=== PATIENT | female | born 1950 | race Caucasian/White ===

== ENCOUNTER 2018-08-22 17:16 | Inpatient (IN) | payer OTHER ==
[~2018-08-22] VITALS: Ht 157.5 cm; Wt 88.0 kg
[~2018-08-22 17:16] MED LIST: ALBUTEROL1.25 MG/3 UPD; ALEVE220 MG PO; GABAPENTIN100 MG PO; GLUCOPHAGE500 MG PO; GLUCOTROL 5 MG T5 MG PO; HYDROCODONE-APA1 TAB OR; HYDROCODONE-APA1 TAB PO; IPRAT-ALBUT 0.5-3 ML UPD; KEFLEX500 MG PO; KLONOPIN1 MG PO; MYCOSTATIN CREA15 GM TP; PAXIL10 MG PO; PERCOCET 10/3251 TA1 PO; PHENERGAN25 M1 PO; PROTONIX40 MG PO; VALIUM5 MG PO
[2018-08-22 18:06] LABS: BASOPHILS 0.2 % (0-2); EOSINOPHILS 0.3 % (0-7); HEMATOCRIT 36.5 % (36.0-48.0); HEMOGLOBIN 10.9 g/dL (12-16); IMMATURE GRANULOCYTES 0.3 % (0-5); LYMPHOCYTES 16.7 % (15-50); MCH 22.2 pg (26.0-34.0); MCHC 29.9 g/dL (31.0-37.0); MCV 74.5 fL (80.0-100.0); MEAN PLATELET VOLUME 10.6 fL (7.4-10.4); MONOCYTES 7.8 % (2-11); NEUTROPHILS 74.7 % (40-80); PLATELET COUNT 252 10x3/uL (130-400); RDW 18.2 % (11.5-14.5); WBC 11.9 10x3/uL (4.8-10.8)
[2018-08-22 18:15] LABS: INR 1.1 (0.85-1.17); PROTIME 13.7 SECONDS (11.6-15.0)
[2018-08-22 18:16] LABS: APTT 34.9 SECONDS (22.8-39.4)
[2018-08-22 18:27] LABS: ALBUMIN 3.3 g/dL (3.4-5.0); ALKALINE PHOSPHATASE 71 U/L (46-116); ALT (SGPT) 16 U/L (10-68); CALC OSMOLALITY 265 mosm/kg (275-300); CALCIUM 8.8 mg/dL (8.5-10.1); CARBON DIOXIDE 27.8 mmol/L (21.0-32.0); CHLORIDE - SERUM 96 mmol/L (98-107); CREATININE - SERUM 0.7 mg/dL (0.6-1.3); GLUCOSE 142 mg/dL (74-106); POTASSIUM - SERUM 3.8 mmol/L (3.5-5.1); PROTEIN - SERUM 8.1 g/dL (6.4-8.2); SODIUM 133 mmol/L (136-145); UREA NITROGEN 8 mg/dL (7-18); eGFR NON AFRICAN AMERICAN 88 mL/min (90-120)
[2018-08-22 18:39] LABS: CREATINE KINASE 63 UL (21-215); MAGNESIUM - SERUM 1.7 mg/dL (1.8-2.4); THYROID STIMULATING HORMONE 0.44 uIU/mL (0.36-3.74)
[2018-08-22 18:40] LABS: TROPONIN-I < 0.017 ng/mL (0.000-0.060)
[2018-08-22 19:05] LABS: APPEARANCE CLOUDY (CLEAR); BILIRUBIN NEGATIVE (NEGATIVE); COLOR YELLOW (YELLOW); GLUCOSE NEGATIVE (NEGATIVE); KETONE NEGATIVE (NEGATIVE); NITRITE POSITIVE (NEGATIVE); PROTEIN NEGATIVE (NEGATIVE); UROBILINOGEN NORMAL (NORMAL)
[2018-08-22 19:07] LABS: BACTERIA MANY /hpf (NONE SEEN); MUCUS <1+ /lpf (NONE SEEN); RED CELLS - URINE 0-5 /hpf (0-5); WHITE CELLS - URINE >50 /hpf (0-5)
[2018-08-22 22:24] VITALS: BP 110/34
[2018-08-23 01:58] VITALS: BP 127/53
[2018-08-23 06:03] VITALS: BP 121/49
[2018-08-23 08:32] LABS: CALC OSMOLALITY 278 mosm/kg (275-300); CALCIUM 8.6 mg/dL (8.5-10.1); CARBON DIOXIDE 25.9 mmol/L (21.0-32.0); CHLORIDE - SERUM 102 mmol/L (98-107); CREATININE - SERUM 0.7 mg/dL (0.6-1.3); GLUCOSE 156 mg/dL (74-106); MAGNESIUM - SERUM 1.8 mg/dL (1.8-2.4); PHOSPHOROUS 3.5 mg/dL (2.5-4.9); POTASSIUM - SERUM 3.6 mmol/L (3.5-5.1); SODIUM 139 mmol/L (136-145); UREA NITROGEN 7 mg/dL (7-18); eGFR NON AFRICAN AMERICAN 88 mL/min (90-120)
[2018-08-23 08:42] LABS: BASOPHILS 0.3 % (0-2); EOSINOPHILS 0.3 % (0-7); HEMATOCRIT 34.2 % (36.0-48.0); HEMOGLOBIN 10.1 g/dL (12-16); IMMATURE GRANULOCYTES 0.1 % (0-5); LYMPHOCYTES 28.6 % (15-50); MCHC 29.5 g/dL (31.0-37.0); MCV 74.3 fL (80.0-100.0); MONOCYTES 11.3 % (2-11); NEUTROPHILS 59.4 % (40-80); PLATELET COUNT 232 10x3/uL (130-400); RDW 18.3 % (11.5-14.5)
[2018-08-23 08:43] LABS: WBC 7.8 10x3/uL (4.8-10.8)
--- NOTE | 2018-08-23 08:47 | NUR ---
0830-REPORT RECEIVED FROM CONTRERAS IN THE ED. 0845-TO ROOM VIA WHEELCHAIR. WILL ADMIT. DENIES NEEDS AT THIS TIME.
--- NOTE | 2018-08-23 08:52 | NUR ---
CALLED [facility] [place] FOR A IV POLE AND SET UP.
[2018-08-23 09:46] VITALS: BP 98/66; BMI 35.5
[2018-08-23] MEDS ORDERED: KLONOPIN1 MG PO (10:29)
--- NOTE | 2018-08-23 10:29 | NUR ---
PER PATIENT'S PERMISSION I CALLED [facility] TO VERIFY HER MEDICATION. I TALKED TO TECH. GERMAIN
[2018-08-23] MEDS ORDERED: PAXIL10 MG PO (10:38)
--- NOTE | 2018-08-23 10:38 | NUR ---
[facility] DOES NOT FILL THE PAXIL. PER PATIENT THIS WAS FILLED AT [facility] [address]. PER PATIENT PERMISSION I CALLED AND TALKED TO CHRISTIN RODRIGUEZ TO VERIFY THIS.
--- NOTE | 2018-08-23 10:58 | NUR ---
PLACED ON HEART MONITOR SHOWING SR, HR 81.
[2018-08-23 11:54] VITALS: BP 98/66
--- NOTE | 2018-08-23 12:42 | NUR ---
I CALLED OVER TO DR ENGLISH DARDEN TO SPEAK TO THE NURSE TO SEE ABOUT CONTINUATION OF HOME MEDICATIONS. I WAS SENT TO THE VOICEMAIL. I CALLED AGAIN AND WAS SENT TO THE VOICEMAIL. I HAD TO LEAVE A VOICEMAIL.
--- NOTE | 2018-08-23 13:25 | NUR ---
CALLED AGAIN TO DR BORJAS OFFICE AND WAS TOLD THEY ARE STILL AT [facility] AND WONT BE BACK UNTIL 2 PM.
--- NOTE | 2018-08-23 14:11 | NUR ---
JENNI (NURSE FROM DR BORJAS OFFICE) TO CALL ME AND TELL ME THAT DR BORJAS IS GOING TO REVIEW HER MEDICATIONS.
[2018-08-23 15:15] VITALS: Ht 157.5 cm; Wt 88.0 kg
--- NOTE | 2018-08-23 15:59 | NUR ---
PATIENT DOES NOT WANT TO WEAR SCD'S SHE IS UP AND DOWN TO THE BATHROOM AND IN CHAIR.
[2018-08-23 16:43] VITALS: BP 106/61
--- NOTE | 2018-08-23 17:11 | NUR ---
IV FLUIDS OF NS STARTED INFUSING TO RIGHT FA/AC AREA ORDERED AT 100 CC/HR. WILL PLACE [facility] CATH PAST SUPPER TRAY. PATIENT HAS AGREED TO WEAR SCD'S ORDERED WHEN [facility] CATH IS PLACED.
--- NOTE | 2018-08-23 17:25 | NUR ---
DR BORJAS HERE AND TELLS ME THAT WE DO NOT NEED THE [facility] CATH PLACEMENT AT THIS TIME.
--- NOTE | 2018-08-23 17:41 | NUR ---
PATIENT AND SPOUSE ARE INFORMED THAT PATIENT NEEDS TO BE NPO PAST MIDNIGHT FOR UPPER GI SERIES.
--- NOTE | 2018-08-23 19:30 | NUR ---
RESUMING PATIENT CARE. PATIENT IS ALERT AND ORIENTED, SITTING ON SIDE OF BED. RESPIRATIONS ARE EVEN AND UNLABORED. NO S/S OF DISTRESS. NO C/O PAIN. CALL LIGHT WITHIN REACH. WILL CPOC.
[2018-08-23 20:00] VITALS: BP 101/38
[2018-08-24] VITALS: BP 101/35
[2018-08-24 04:00] VITALS: BP 121/55
[2018-08-24 06:05] LABS: BASOPHILS 0.3 % (0-2); EOSINOPHILS 0.3 % (0-7); HEMATOCRIT 33.6 % (36.0-48.0); HEMOGLOBIN 9.8 g/dL (12-16); IMMATURE GRANULOCYTES 0.2 % (0-5); LYMPHOCYTES 37.1 % (15-50); MCH 21.9 pg (26.0-34.0); MCHC 29.2 g/dL (31.0-37.0); MCV 75.2 fL (80.0-100.0); MEAN PLATELET VOLUME 10.8 fL (7.4-10.4); MONOCYTES 14.5 % (2-11); NEUTROPHILS 47.6 % (40-80); PLATELET COUNT 215 10x3/uL (130-400); RBC 4.47 10x6/uL (4.00-5.40); RDW 18.1 % (11.5-14.5); WBC 6.6 10x3/uL (4.8-10.8)
[2018-08-24 06:35] LABS: CALC OSMOLALITY 275 mosm/kg (275-300); CARBON DIOXIDE 25.8 mmol/L (21.0-32.0); CHLORIDE - SERUM 101 mmol/L (98-107); CREATININE - SERUM 0.7 mg/dL (0.6-1.3); GLUCOSE 158 mg/dL (74-106); POTASSIUM - SERUM 3.3 mmol/L (3.5-5.1); SODIUM 138 mmol/L (136-145); UREA NITROGEN 5 mg/dL (7-18); eGFR NON AFRICAN AMERICAN 88 mL/min (90-120)
[2018-08-24 07:00] VITALS: BP 118/60
--- NOTE | 2018-08-24 07:15 | NUR ---
PT DOES NOT HAVE IV RUNNING AT THIS TIME. PT LAYING IN BED EYES CLOSED. BREATHING EVEN AND UNLABORED, BED IN LOWEST POSITION AND CALL LIGHT WITHIN REACH. PT'S AT BEDSIDE. REPORT RECIEVED AND MORNING ROUNDING COMPLETE.
--- NOTE | 2018-08-24 07:57 | HP ---
PATIENT: MIKE PETERSON MEDICAL RECORD: [id number] ACCOUNT: [id number] LOCATION:[address] : 50 ADMISSION DATE: 08/22/18 PCP: IFEANYI BORJAS MD HISTORY AND PHYSICAL EXAMINATION REASON FOR ADMISSION: Altered mental status. HISTORY OF PRESENT ILLNESS: The patient is a 68-year-old female with history of COPD, whose noted her late yesterday afternoon to be somewhat confused when he returned home. She was having trouble articulating i.e., having some word salad. She had trouble naming the name of her cat and what city she lived in. She simply cannot answer questions well and her thought that she had increase in leg pain as well. She denied fever, presented to the Emergency Room with these complaints. Initially, she was thought to have had a stroke and had a CT scan of her head, it did not show any acute cerebral injury. She was noted, however, to have significant pyuria and bacteriuria. She was given IV antibiotics and fluids now somewhat improved. She denies headache and was more oriented at this time. She has been waiting overnight for a bed. PAST MEDICAL HISTORY: Type 2 diabetes mellitus, history of ventral hernia repair, chronic anxiety and depression with panic disorder, diabetic peripheral neuropathy, obesity, chronic back pain, osteoarthritis, history of Stafford's palsy partially resolved, sleep apnea, restless leg syndrome, sciatica, and anemia of chronic renal disease. PAST SURGICAL HISTORY: Laparoscopic cholecystectomy and ventral hernia repair, appendectomy, cervical fusion, and arthroscopy on knee. ALLERGIES: MORPHINE. FAMILY HISTORY: Mother is , at 39, accidental . Father's health unknown. MEDICATIONS: NovoLog sliding scale as directed, metformin ER 500 mg twice a day, Protonix 40 mg a day, Lyrica 100 mg p.o. t.i.d., Hydrocodone 10/325 one t.i.d. p.r.n. low back pain, DuoNeb updrafts 4 times daily, ProAir rescue inhaler as needed, Klonopin 1 mg one-half to one p.o. b.i.d. for anxiety, Breo Ellipta 200 mcg 1 puff daily, paroxetine 20 mg daily. REVIEW OF SYSTEMS: CONSTITUTIONAL: Chronically fatigued and depressed. No recent weight change. HEENT: No recent visual change, sinus congestion, or sore throat. RESPIRATORY: No SOB or cough. CARDIAC: No recent chest pains, orthopnea, palpitations or claudication. GASTROINTESTINAL: No nausea or vomiting. GENITOURINARY: She has chronic urinary urgency. She has had some malodorous urine recently, but no dysuria or hematuria. MUSCULOSKELETAL: Chronic lumbago and sciatica. INTEGUMENTARY: No rash or itching. PSYCHIATRIC: Admits to chronically depressed mood due to her son's suicide years ago. She has anxiety as well, but it is well controlled with Klonopin. PHYSICAL EXAMINATION: VITAL SIGNS: Temperature is 100.2, pulse 106, respirations 19, blood pressure HISTORY AND PHYSICAL [id number] MIKE PETERSON is 130/69 with a sat 93% on room air. HEENT: Normocephalic. Eyes are clear, nonicteric. Oropharynx has dry mucous membranes. NECK: Supple. CHEST: Faint expiratory wheeze on forced expiration. No rales, but she is not tachypneic. HEART: Tachycardic without gallop. ABDOMEN: Obese, soft, nontender. No organomegaly. No CVA tenderness noted. EXTREMITIES: No CCE. NEUROLOGICAL: She is oriented to person and place, but not time. She now can remember the name of her cat, but could not previously. She denies any weakness in her legs or arms, trouble swallowing. LABORATORY DATA: Shows white count of 11,900 with H&H of 10 and 34.2, reflecting her chronic anemia. Platelet count 232,000. Electrolytes are normal. Creatinine is 0.7, glucose is 156 nonfasting. Urinalysis is nitrite positive, greater than 50 white cells per high power field, many bacteria. INR is 1.1, magnesium is low at 1.7. Cardiac enzymes are negative. Urine culture showing gram-negative hitesh currently. CT of the head without contrast showing no mass affect or hemorrhage, otherwise normal for age. Chest x-ray shows no acute findings. ASSESSMENT: 1. Urinary tract infection, most likely cause of altered mental status. 2. Chronic obstructive pulmonary disease. 3. Hypertension. 4. Hyperlipidemia. 5. Obesity. 6. Chronic pain syndrome, lumbar disc disease. 7. Anxiety, depression, and restless leg syndrome. PLAN: The patient will be admitted. She has been cultured appropriately placed on IV Levaquin and already more alert. Give IV fluids, hold any type of antihypertensive meds currently until well hydrated. Further workup pending clinical course. TRANSINT:[id number] Voice Confirmation ID: [id number] DOCUMENT ID: [id number] IFEANYI BORJAS MD at 0757 CC: [id number] DICTATION DATE: 08/23/18 1558 CLOTH PATTERN MAKER: 08/23/181955 ADM IN [place] [id number] [place] [id number]
--- NOTE | 2018-08-24 08:13 | NUR ---
PT LEAVING FLOOR VIA WHEELCHAIR WITH IR FOR UPPER GI.
[2018-08-24 08:24] LABS: % SATURATION 6 % (15-55); IRON 23 ug/dl (35-150); TOTAL IRON BIND CAPACITY 352 ug/dl (260-445); UNSAT IRON BIND CAPACITY 329 ug/dl (150-375)
[2018-08-24 08:41] LABS: FERRITIN 28 ng/mL (3-244); LDH 360 U/L (81-234)
--- NOTE | 2018-08-24 09:16 | NUR ---
PT BACK IN ROOM REQUESTING BREAKFAST TRAY. ORDERED TRAY. CALL LIGHT WITHIN REACH.
--- NOTE | 2018-08-24 10:18 | NUR ---
IV PATENT. AT BS. CALL LIGHT IN REACH. WILL MONITOR NEEDS.
[2018-08-24 11:00] VITALS: BP 121/54
[2018-08-24 15:00] VITALS: BP 138/56
--- NOTE | 2018-08-24 19:45 | NUR ---
RN NOTE - INITIAL ROUNDS COMPLETED. PT SPOUSE AT BEDSIDE. NO COMPLAINTS AT THIS TIME. NO S/S OF DISTRESS, RR EVEN AND UL. WCTM AND FOLLOW POC. SR UP X2, CL IN REACH. BED IN LOWEST POSITION.
[2018-08-24 20:25] VITALS: BP 124/63
--- NOTE | 2018-08-24 23:54 | NUR ---
PT IS RESTING QUIETLY IN BED WITH EYES CLOSED. RESPS ARE EVEN AND UNLABORED. NO ACUTE DISTRESS NOTED.
[2018-08-25 00:30] VITALS: BP 115/53
--- NOTE | 2018-08-25 04:29 | NUR ---
PT RESTING IN BED WITH EYES CLOSED.
[2018-08-25 04:45] VITALS: BP 124/54
--- NOTE | 2018-08-25 07:15 | NUR ---
REPORT RECIEVED AND MORNING ROUNDING COMPLETE. PT LAYING IN BED O&A X4. PT WANTING TO GO HOME TODAY. PT IS AT BEDSIDE AND PT HAS NO NEEDS AT THIS TIME, CALL LIGHT WITHIN REACH. BED IN LOWEST POSITION. INFORMED PT THAT WE NEEDED A STOOL SAMPLE WHENEVER SHE GOES, LET MYSELF OR HER INTERNATIONAL LOGISTICS MANAGER KNOW. PT STATES SHE UNDERSTANDS.
[2018-08-25 08:25] VITALS: BP 117/75
--- NOTE | 2018-08-25 09:59 | NUR ---
UP AMBULATING HALLWAY. GAIT STEADY.
[2018-08-25] MEDS ORDERED: MACRODANTIN100 MG PO (10:11)
--- NOTE | 2018-08-25 12:33 | NUR ---
PT IS DISCHARGED. REMOVED PTS PIV FROM RIGHT AC. NO BLEEDING NOTED. REVIEWED PT'S DISCHARGE PAPERWORK PT STATED FULL UNDERSTANDING AND SIGNED THE PAPERWORK. PT WAS TOOK OUT TO MEET HER VIA WHEELCHAIR.
[2018-08-26 11:14] LABS: FOLATE (FOLIC ACID) - SERUM 10.3 ng/mL (>3.0)
--- NOTE | 2018-08-26 12:46 | MORECARE ---
CASE MANAGEMENT DISCHARGE SUMMARY PATIENT: MIKE PETERSON UNIT: [id number] ADM DATE: 08/22/18 AGE: 68 : 50 SEX: F ROOM/BED: D.9098 AUTHOR: WESTON MONTAÑO PHYSICIAN: REFERRING PHYSICIAN: IFEANYI BORJAS MD DATE OF SERVICE: 08/26/18 Discharge Plan Patient Name: MIKE PETERSON [facility] [facility] 1950 Planned Disposition: Home Anticipated Discharge Date: 08/25/18 Discharge Date: 08/25/2018 Expected LOS: 3 Initial Reviewer: [email or web address] Initial Review Date: 08/26/2018 Generated: 08/26/18 1:46 pm Patient Name: MIKE PETERSON Page [id number] at 1246 All edits/amendments must be made on the electronic document DICTATION DATE: 08/26/18 1245 FOUR SLIDE MACHINE OPERATOR: HENRIETTA 08/26/18 1245 RPT#: [id number] DC DATE:08/25/18 STATUS: DIS IN [facility] [address] [place] [address] END OF REPORT
== END 2018-08-25 12:35 | disposition home or self-care (01) | DRG 689 ==
LOC: D.ER 17:16 → D.EDHOLD 20:59 → D.M2 20:59
PROVIDERS: Family Medicine; ADMIT Family Medicine
DX: N39.0 Urinary tract infection, site not specified (principal); G93.41 Metabolic encephalopathy; B96.20 Unspecified Escherichia coli [E. coli] as the cause of diseases classified elsewhere; Z16.20 Resistance to unspecified antibiotic; J44.9 Chronic obstructive pulmonary disease, unspecified; E11.40 Type 2 diabetes mellitus with diabetic neuropathy, unspecified; G25.81 Restless legs syndrome; D64.9 Anemia, unspecified; F41.9 Anxiety disorder, unspecified; F32.9 Major depressive disorder, single episode, unspecified; I10 Essential (primary) hypertension; E78.5 Hyperlipidemia, unspecified; E66.9 Obesity, unspecified; Z68.35 Body mass index [BMI] 35.0-35.9, adult; G89.4 Chronic pain syndrome

== ENCOUNTER 2018-08-30 08:00 | Outpatient (CLI) | payer OTHER ==
[2018-08-23 15:15] VITALS: BMI 35.5
[~2018-08-30 08:00] MED LIST changes: +MACRODANTIN100 MG PO
== END 2018-08-30 09:00 | disposition home or self-care (01) ==
LOC: D.MAMMO 08:00
DX: Z12.31 Encounter for screening mammogram for malignant neoplasm of breast (principal)

== ENCOUNTER → 2020-10-13 13:00 | Outpatient (CLI) | payer OTHER ==
[2020-08-03 22:13] VITALS: BMI 36.9
[~2020-10-13 13:00] MED LIST changes: +CIPRO250 MG PO; +GLUCOTROL ER2.5 MG PO
== END | disposition home or self-care (01) ==
LOC: D.MAMMO 13:00
PROVIDERS: ATTEND Family Medicine
DX: Z12.31 Encounter for screening mammogram for malignant neoplasm of breast (principal)